=== PATIENT | male | born 1930 | race Caucasian/White ===

== ENCOUNTER 2018-07-04 15:18 | Inpatient (IN) | payer BC, MEDICARE ==
[~2018-07-04] VITALS: Ht 185.4 cm; Wt 79.0 kg
[~2018-07-04 15:18] MED LIST: ESOM40CA PO; FINA5TAB11 PO; LACT10SO PO; TERA5CAP4 PO
[2018-07-04] MEDS ORDERED: ASPIRIN 81MG TABLET PO ONE (16:00)
[2018-07-04 16:51] LABS: CHLORIDE 80 mEq/L (98-107)
[2018-07-04 16:53] LABS: HEMATOCRIT. 33.4 % (42.0-52.0); HEMOGLOBIN. 11.5 g/dL (14.0-18.0); MEAN CORPUSCULAR HEMOGLOBIN 30.2 pg (28.0-32.0); MEAN CORPUSCULAR VOLUME 87.8 fL (80.0-94.0); MEAN PLATELET VOLUME 7.3 fl (7.4-10.4); PLATELET 198 x1000/uL (130-400); RED CELL DISTRIBUTION WIDTH 13.9 % (11.6-14.6)
[2018-07-04] MEDS ORDERED: SODIUM CHLORIDE 0.9% 1,000 ML IV ONE (17:15)
[2018-07-04] MEDS ORDERED: SODIUM CHLORIDE 0.9% 500 ML IV ONE (17:15)
[2018-07-04 17:25] LABS: PLATELET ESTIMATE NORMAL
[2018-07-05] VITALS (12 sets, daily range): BP systolic 127–155; BP diastolic 61–98
[2018-07-05] MEDS ORDERED: DOCUSATE SODIUM 100MG CAPSULE PO PRN (01:00)
[2018-07-05] MEDS ORDERED: IPRATROPIUM/ALBUTEROL 0.5-3(2.5)MG/3ML NEB INH PRN (01:00)
[2018-07-05] MEDS ORDERED: NON FORMULARY PATIENT HOME MED PO SCH (01:00)
[2018-07-05] MEDS ORDERED: CLONIDINE 0.1MG TABLET PO PRN (01:00)
[2018-07-05] MEDS ORDERED: HYDROCODONE/APAP 7.5/325MG 1 TAB TABLET PO PRN (01:00)
[2018-07-05] MEDS ORDERED: MAGNESIUM/ALUMINUM HYDROXIDE/SIMETHICONE 30ML UDC PO PRN (01:00)
[2018-07-05] MEDS ORDERED: HYDROCODONE/ACETAMINOPHEN 5/325MG TABLET PO PRN (01:00)
[2018-07-05] MEDS ORDERED: ONDANSETRON HCL 4MG/2ML INJ IV PRN (01:00)
[2018-07-05] MEDS ORDERED: GUAIFENESIN 200MG/10ML SUGAR FREE UDC PO PRN (01:00)
[2018-07-05] MEDS ORDERED: ACETAMINOPHEN 325MG TABLET PO PRN (01:00)
[2018-07-05] MEDS ORDERED: DIPHENHYDRAMINE 50MG/ML VIAL IV PRN (01:00)
[2018-07-05] MEDS ORDERED: ATOR10TA69 MT (01:05)
[2018-07-05] MEDS ORDERED: FURO40TA5 PO (01:05)
[2018-07-05] MEDS ORDERED: CLOP75TA33 MT (01:05)
[2018-07-05] MEDS ORDERED: AMLO5TAB88 MT (01:05)
[2018-07-05] MEDS ORDERED: CEFTRIAXONE 1 G PREMIX 50 ML IV SCH (02:00)
[2018-07-05] MEDS ORDERED: AZITHROMYCIN 500 MG in DEXT 5% WATER 250 ML IV SCH (03:00)
[2018-07-05 05:57] LABS: BASOPHILS % 0.2 % (0.0-2.0); EOSINOPHILS % 0.2 % (0.0-5.0); HEMATOCRIT. 31.3 % (42.0-52.0); HEMOGLOBIN. 10.9 g/dL (14.0-18.0); LYMPHOCYTES % 7.4 % (20.0-50.0); MEAN CORPUSCULAR HEMOGLOBIN 30.5 pg (28.0-32.0); MEAN PLATELET VOLUME 7.5 fl (7.4-10.4); MONOCYTES % 10.6 % (2.0-8.0); NEUTROPHILS % 81.6 % (40.0-76.0); PLATELET 168 x1000/uL (130-400); RED BLOOD CELL COUNT 3.56 mill/uL (4.7-6.1); RED CELL DISTRIBUTION WIDTH 14.3 % (11.6-14.6)
[2018-07-05 06:16] LABS: CHLORIDE 81 mEq/L (98-107)
[2018-07-05 06:30] LABS: LDL CHOLESTEROL 16 mg/dL (5-100); PHOSPHORUS 3.2 mg/dL (2.5-4.9); T4 FREE 1.51 ng/dL (0.76-1.46)
[2018-07-05 06:31] LABS: HDL CHOLESTEROL 72 mg/dL (40-59)
[2018-07-05] MEDS ORDERED: PANTOPRAZOLE 40MG DR TABLET PO SCH (07:30)
[2018-07-05] MEDS: AMLODIPINE 5MG TABLET PO SCH (08:38)
[2018-07-05] MEDS: FINASTERIDE 5MG TABLET PO SCH (08:38)
[2018-07-05] MEDS: CLOPIDOGREL 75MG TABLET PO SCH (08:39)
[2018-07-05] MEDS ORDERED: FUROSEMIDE 40MG TABLET PO SCH (09:00)
[2018-07-05] MEDS ORDERED: FUROSEMIDE 40MG/4ML VIAL IVP SCH (09:00)
[2018-07-05] MEDS: FUROSEMIDE 40MG/4ML VIAL IVP SCH (13:14)
[2018-07-05] MEDS: SODIUM CHLORIDE 0.9% 1,000 ML IV SCH (13:14)
[2018-07-05 16:29] LABS: CLARITY URINE CLEAR (CLEAR); COLOR URINE YELLOW (YELLOW); KETONES URINE NEGATIVE (NEGATIVE); LEUKOCYTE ESTERASE URINE NEGATIVE (NEGATIVE); NITRITE URINE NEGATIVE (NEGATIVE); OCCULT BLOOD URINE NEGATIVE (NEGATIVE); PROTEIN URINE 2+ (NEGATIVE); SPECIFIC GRAVITY URINE 1.009 (1.005-1.030); UROBILINOGEN URINE 0.2 E.U./dL (0.2-1.0)
[2018-07-05] MEDS: CARVEDILOL 3.125 MG TABLET PO SCH (21:00)
[2018-07-05] MEDS: ATORVASTATIN CALCIUM 10MG TABLET PO SCH (21:00)
[2018-07-05] MEDS: TERAZOSIN HCL 5MG CAPSULE PO SCH (21:00)
[2018-07-06] VITALS (19 sets, daily range): BP systolic 111–147; BP diastolic 48–79
[2018-07-06 06:34] LABS: BASOPHILS % 0.4 % (0.0-2.0); EOSINOPHILS % 2.2 % (0.0-5.0); HEMATOCRIT. 32.6 % (42.0-52.0); HEMOGLOBIN. 11.2 g/dL (14.0-18.0); LYMPHOCYTES % 9.8 % (20.0-50.0); MEAN CORPUSCULAR HEMOGLOBIN 30.3 pg (28.0-32.0); MEAN CORPUSCULAR VOLUME 88.2 fL (80.0-94.0); MEAN PLATELET VOLUME 7.7 fl (7.4-10.4); MONOCYTES % 10.5 % (2.0-8.0); NEUTROPHILS % 77.1 % (40.0-76.0); PLATELET 176 x1000/uL (130-400); RED BLOOD CELL COUNT 3.69 mill/uL (4.7-6.1)
[2018-07-06 08:04] LABS: CHLORIDE 81 mEq/L (98-107)
[2018-07-06] MEDS: FUROSEMIDE 40MG/4ML VIAL IVP SCH (10:02)
[2018-07-06] MEDS: CLOPIDOGREL 75MG TABLET PO SCH (10:03)
[2018-07-06] MEDS: AMLODIPINE 5MG TABLET PO SCH (10:04)
[2018-07-06] MEDS: CARVEDILOL 3.125 MG TABLET PO SCH ×2 (10:12→20:18)
[2018-07-06] MEDS: FINASTERIDE 5MG TABLET PO SCH (10:12)
[2018-07-06] MEDS: SODIUM CHLORIDE 0.9% 1,000 ML IV SCH (10:12)
[2018-07-06] MEDS ORDERED: MAGNESIUM 2 G PREMIX 50 ML IV NR (12:00)
[2018-07-06] MEDS: LOSARTAN POTASSIUM 25 MG TABLET PO SCH (12:18)
[2018-07-06] MEDS: ENOXAPARIN 40MG/0.4ML SYR SUBCUT SCH (12:19)
[2018-07-06] MEDS: ATORVASTATIN CALCIUM 10MG TABLET PO SCH (20:12)
[2018-07-06] MEDS: TERAZOSIN HCL 5MG CAPSULE PO SCH (20:19)
[2018-07-07] VITALS (13 sets, daily range): BP systolic 113–138; BP diastolic 41–69
[2018-07-07] MEDS: SODIUM CHLORIDE 0.9% 1,000 ML IV SCH ×2 (04:36→23:38)
[2018-07-07 06:25] LABS: BASOPHILS % 0.5 % (0.0-2.0); HEMATOCRIT. 31.5 % (42.0-52.0); HEMOGLOBIN. 10.9 g/dL (14.0-18.0); LYMPHOCYTES % 8.8 % (20.0-50.0); MEAN CORPUSCULAR HEMOGLOBIN 30.3 pg (28.0-32.0); MEAN CORPUSCULAR VOLUME 87.8 fL (80.0-94.0); MEAN PLATELET VOLUME 7.5 fl (7.4-10.4); MONOCYTES % 9.7 % (2.0-8.0); PLATELET 175 x1000/uL (130-400); RED BLOOD CELL COUNT 3.58 mill/uL (4.7-6.1); RED CELL DISTRIBUTION WIDTH 13.8 % (11.6-14.6)
[2018-07-07 07:10] LABS: CHLORIDE 82 mEq/L (98-107)
[2018-07-07] MEDS: FINASTERIDE 5MG TABLET PO SCH (08:53)
[2018-07-07] MEDS: CLOPIDOGREL 75MG TABLET PO SCH (08:53)
[2018-07-07] MEDS: AMLODIPINE 5MG TABLET PO SCH (08:53)
[2018-07-07] MEDS: FUROSEMIDE 40MG/4ML VIAL IVP SCH (08:54)
[2018-07-07] MEDS: LOSARTAN POTASSIUM 25 MG TABLET PO SCH (08:54)
[2018-07-07] MEDS: CARVEDILOL 3.125 MG TABLET PO SCH ×2 (08:54→21:03)
[2018-07-07] MEDS ORDERED: POTASSIUM CHLORIDE 20MEQ TABLET SR PO SCH (09:30)
[2018-07-07] MEDS: ENOXAPARIN 40MG/0.4ML SYR SUBCUT SCH (11:15)
[2018-07-07] MEDS: TERAZOSIN HCL 5MG CAPSULE PO SCH (21:02)
[2018-07-07] MEDS: ATORVASTATIN CALCIUM 10MG TABLET PO SCH (21:03)
[2018-07-08] VITALS (11 sets, daily range): BP systolic 111–147; BP diastolic 56–75
[2018-07-08 06:29] LABS: BASOPHILS % 0.5 % (0.0-2.0); EOSINOPHILS % 3.4 % (0.0-5.0); HEMATOCRIT. 33.8 % (42.0-52.0); HEMOGLOBIN. 11.5 g/dL (14.0-18.0); LYMPHOCYTES % 10.7 % (20.0-50.0); MEAN CORPUSCULAR HEMOGLOBIN 29.9 pg (28.0-32.0); MEAN CORPUSCULAR VOLUME 87.7 fL (80.0-94.0); MEAN PLATELET VOLUME 7.4 fl (7.4-10.4); MONOCYTES % 10.3 % (2.0-8.0); NEUTROPHILS % 75.1 % (40.0-76.0); PLATELET 193 x1000/uL (130-400); RED BLOOD CELL COUNT 3.85 mill/uL (4.7-6.1)
[2018-07-08] MEDS: FUROSEMIDE 40MG/4ML VIAL IVP SCH (08:19)
[2018-07-08] MEDS: LOSARTAN POTASSIUM 25 MG TABLET PO SCH (08:19)
[2018-07-08] MEDS: FINASTERIDE 5MG TABLET PO SCH (08:19)
[2018-07-08] MEDS: AMLODIPINE 5MG TABLET PO SCH (08:20)
[2018-07-08] MEDS: CARVEDILOL 3.125 MG TABLET PO SCH ×2 (08:20→21:02)
[2018-07-08] MEDS: CLOPIDOGREL 75MG TABLET PO SCH (08:21)
[2018-07-08] MEDS ORDERED: NA PHOS,M-B/NA PHOS,DI-BA ENEMA 118ML PR SCH (09:30)
[2018-07-08] MEDS: ENOXAPARIN 40MG/0.4ML SYR SUBCUT SCH (11:08)
[2018-07-08] MEDS: SODIUM CHLORIDE 0.9% 1,000 ML IV SCH (21:01)
[2018-07-08] MEDS: LACTULOSE 20G/30ML UDC PO SCH (21:01)
[2018-07-08] MEDS: ATORVASTATIN CALCIUM 10MG TABLET PO SCH (21:02)
[2018-07-08] MEDS: TERAZOSIN HCL 5MG CAPSULE PO SCH (21:02)
[2018-07-09] VITALS (12 sets, daily range): BP systolic 110–142; BP diastolic 53–74
[2018-07-09 05:49] LABS: CHLORIDE 88 mEq/L (98-107)
[2018-07-09 05:58] LABS: BASOPHILS % 0.7 % (0.0-2.0); EOSINOPHILS % 3.9 % (0.0-5.0); HEMATOCRIT. 33.2 % (42.0-52.0); HEMOGLOBIN. 11.1 g/dL (14.0-18.0); LYMPHOCYTES % 10.5 % (20.0-50.0); MEAN CORPUSCULAR HEMOGLOBIN 29.8 pg (28.0-32.0); MEAN CORPUSCULAR VOLUME 89.1 fL (80.0-94.0); MEAN PLATELET VOLUME 7.4 fl (7.4-10.4); NEUTROPHILS % 73.9 % (40.0-76.0); PLATELET 187 x1000/uL (130-400); RED BLOOD CELL COUNT 3.72 mill/uL (4.7-6.1); RED CELL DISTRIBUTION WIDTH 14.1 % (11.6-14.6)
[2018-07-09] MEDS: FUROSEMIDE 40MG/4ML VIAL IVP SCH (09:53)
[2018-07-09] MEDS: LOSARTAN POTASSIUM 25 MG TABLET PO SCH (09:54)
[2018-07-09] MEDS: AMLODIPINE 5MG TABLET PO SCH (09:54)
[2018-07-09] MEDS: FINASTERIDE 5MG TABLET PO SCH (09:54)
[2018-07-09] MEDS: CLOPIDOGREL 75MG TABLET PO SCH (09:54)
[2018-07-09] MEDS: CARVEDILOL 3.125 MG TABLET PO SCH ×2 (09:54→21:39)
[2018-07-09] MEDS: ENOXAPARIN 40MG/0.4ML SYR SUBCUT SCH (10:03)
[2018-07-09] MEDS: SODIUM CHLORIDE 0.9% 1,000 ML IV SCH (16:02)
[2018-07-09] MEDS: LACTULOSE 20G/30ML UDC PO SCH (21:38)
[2018-07-09] MEDS: TERAZOSIN HCL 5MG CAPSULE PO SCH (21:39)
[2018-07-09] MEDS: ATORVASTATIN CALCIUM 10MG TABLET PO SCH (21:39)
[2018-07-10] VITALS (14 sets, daily range): BP systolic 110–139; BP diastolic 42–105
[2018-07-10 06:19] LABS: BASOPHILS % 0.7 % (0.0-2.0); EOSINOPHILS % 6.1 % (0.0-5.0); HEMATOCRIT. 33.1 % (42.0-52.0); HEMOGLOBIN. 11.3 g/dL (14.0-18.0); LYMPHOCYTES % 10.9 % (20.0-50.0); MEAN CORPUSCULAR HEMOGLOBIN 30.1 pg (28.0-32.0); MEAN CORPUSCULAR VOLUME 88.3 fL (80.0-94.0); MEAN PLATELET VOLUME 7.4 fl (7.4-10.4); MONOCYTES % 10.5 % (2.0-8.0); NEUTROPHILS % 71.8 % (40.0-76.0); PLATELET 179 x1000/uL (130-400); RED BLOOD CELL COUNT 3.75 mill/uL (4.7-6.1); RED CELL DISTRIBUTION WIDTH 14.3 % (11.6-14.6)
[2018-07-10] MEDS: CLOPIDOGREL 75MG TABLET PO SCH (09:07)
[2018-07-10] MEDS: CARVEDILOL 3.125 MG TABLET PO SCH ×2 (09:07→22:58)
[2018-07-10] MEDS: FUROSEMIDE 40MG/4ML VIAL IVP SCH (09:07)
[2018-07-10] MEDS: FINASTERIDE 5MG TABLET PO SCH (09:07)
[2018-07-10] MEDS: AMLODIPINE 5MG TABLET PO SCH (09:08)
[2018-07-10] MEDS: LOSARTAN POTASSIUM 25 MG TABLET PO SCH (09:08)
[2018-07-10] MEDS: ENOXAPARIN 40MG/0.4ML SYR SUBCUT SCH (13:57)
[2018-07-10] MEDS: ATORVASTATIN CALCIUM 10MG TABLET PO SCH (20:46)
[2018-07-10] MEDS: LACTULOSE 20G/30ML UDC PO SCH (20:46)
[2018-07-10] MEDS: TERAZOSIN HCL 5MG CAPSULE PO SCH (20:46)
[2018-07-11] VITALS (12 sets, daily range): BP systolic 101–134; BP diastolic 45–69
[2018-07-11] MEDS: CLOPIDOGREL 75MG TABLET PO SCH (08:55)
[2018-07-11] MEDS: AMLODIPINE 5MG TABLET PO SCH (08:55)
[2018-07-11] MEDS: LOSARTAN POTASSIUM 25 MG TABLET PO SCH (08:55)
[2018-07-11] MEDS: FUROSEMIDE 40MG/4ML VIAL IVP SCH (08:55)
[2018-07-11] MEDS: FINASTERIDE 5MG TABLET PO SCH (08:55)
[2018-07-11] MEDS: CARVEDILOL 3.125 MG TABLET PO SCH ×2 (08:56→20:32)
[2018-07-11 09:47] LABS: BASOPHILS % 0.8 % (0.0-2.0); EOSINOPHILS % 5.3 % (0.0-5.0); LYMPHOCYTES % 12.5 % (20.0-50.0); MEAN CORPUSCULAR HEMOGLOBIN 29.6 pg (28.0-32.0); MONOCYTES % 8.2 % (2.0-8.0); NEUTROPHILS % 73.2 % (40.0-76.0); PLATELET 187 x1000/uL (130-400); RED BLOOD CELL COUNT 4.05 mill/uL (4.7-6.1); RED CELL DISTRIBUTION WIDTH 14.1 % (11.6-14.6)
[2018-07-11] MEDS: ENOXAPARIN 40MG/0.4ML SYR SUBCUT SCH (10:49)
[2018-07-11] MEDS ORDERED: POTASSIUM CHLORIDE 20MEQ TABLET SR PO NR (11:30)
[2018-07-11] MEDS: TERAZOSIN HCL 5MG CAPSULE PO SCH (20:32)
[2018-07-11] MEDS: LACTULOSE 20G/30ML UDC PO SCH (20:32)
[2018-07-11] MEDS: ATORVASTATIN CALCIUM 10MG TABLET PO SCH (20:32)
[2018-07-12] VITALS (13 sets, daily range): BP systolic 95–133; BP diastolic 45–66
[2018-07-12 06:32] LABS: BASOPHILS % 1.1 % (0.0-2.0); EOSINOPHILS % 6.4 % (0.0-5.0); HEMATOCRIT. 33.4 % (42.0-52.0); HEMOGLOBIN. 11.4 g/dL (14.0-18.0); LYMPHOCYTES % 11.5 % (20.0-50.0); MEAN CORPUSCULAR HEMOGLOBIN 30.2 pg (28.0-32.0); MEAN CORPUSCULAR VOLUME 88.3 fL (80.0-94.0); MEAN PLATELET VOLUME 7.3 fl (7.4-10.4); MONOCYTES % 10.6 % (2.0-8.0); NEUTROPHILS % 70.4 % (40.0-76.0); PLATELET 196 x1000/uL (130-400); RED BLOOD CELL COUNT 3.79 mill/uL (4.7-6.1); RED CELL DISTRIBUTION WIDTH 14.5 % (11.6-14.6)
[2018-07-12] MEDS: FUROSEMIDE 40MG/4ML VIAL IVP SCH (08:20)
[2018-07-12] MEDS: AMLODIPINE 5MG TABLET PO SCH (08:21)
[2018-07-12] MEDS: FINASTERIDE 5MG TABLET PO SCH (08:21)
[2018-07-12] MEDS: LOSARTAN POTASSIUM 25 MG TABLET PO SCH (08:21)
[2018-07-12] MEDS: CARVEDILOL 3.125 MG TABLET PO SCH ×2 (08:21→21:18)
[2018-07-12] MEDS: CLOPIDOGREL 75MG TABLET PO SCH (08:22)
[2018-07-12] MEDS: ENOXAPARIN 40MG/0.4ML SYR SUBCUT SCH (09:23)
[2018-07-12] MEDS: LACTULOSE 20G/30ML UDC PO SCH (21:17)
[2018-07-12] MEDS: ATORVASTATIN CALCIUM 10MG TABLET PO SCH (21:17)
[2018-07-12] MEDS: TERAZOSIN HCL 5MG CAPSULE PO SCH (21:18)
[2018-07-13] VITALS (10 sets, daily range): BP systolic 101–139; BP diastolic 46–69
[2018-07-13] MEDS: CARVEDILOL 3.125 MG TABLET PO SCH ×2 (08:08→21:00)
[2018-07-13] MEDS: LOSARTAN POTASSIUM 25 MG TABLET PO SCH (08:09)
[2018-07-13] MEDS: AMLODIPINE 5MG TABLET PO SCH (08:09)
[2018-07-13] MEDS: FUROSEMIDE 40MG/4ML VIAL IVP SCH (08:52)
[2018-07-13] MEDS: CLOPIDOGREL 75MG TABLET PO SCH (08:52)
[2018-07-13] MEDS: FINASTERIDE 5MG TABLET PO SCH (08:53)
[2018-07-13] MEDS: ENOXAPARIN 40MG/0.4ML SYR SUBCUT SCH (11:04)
[2018-07-13 13:09] LABS: HEMATOCRIT 36.4 % (42.0-52.0); HEMOGLOBIN 12.2 g/dL (14.0-18.0); MEAN CORPUSCULAR VOLUME 89.7 fL (80.0-94.0); PLATELET 196 x1000/uL (130-400); RED BLOOD CELL COUNT 4.06 mill/uL (4.7-6.1); RED CELL DISTRIBUTION WIDTH 14.1 % (11.6-14.6)
[2018-07-13 13:52] LABS: CHLORIDE 95 mEq/L (98-107)
[2018-07-13] MEDS: ATORVASTATIN CALCIUM 10MG TABLET PO SCH (21:00)
[2018-07-13] MEDS: TERAZOSIN HCL 5MG CAPSULE PO SCH (21:00)
[2018-07-13] MEDS: LACTULOSE 20G/30ML UDC PO SCH (21:00)
[2018-07-14] VITALS (8 sets, daily range): BP systolic 98–130; BP diastolic 46–66
[2018-07-14 07:55] LABS: EOSINOPHILS % 4.7 % (0.0-5.0); HEMATOCRIT. 34.1 % (42.0-52.0); HEMOGLOBIN. 11.4 g/dL (14.0-18.0); LYMPHOCYTES % 11.9 % (20.0-50.0); MEAN CORPUSCULAR HEMOGLOBIN 29.8 pg (28.0-32.0); MEAN CORPUSCULAR VOLUME 89.1 fL (80.0-94.0); MEAN PLATELET VOLUME 7.3 fl (7.4-10.4); MONOCYTES % 9.8 % (2.0-8.0); NEUTROPHILS % 72.6 % (40.0-76.0); PLATELET 193 x1000/uL (130-400); RED BLOOD CELL COUNT 3.82 mill/uL (4.7-6.1); RED CELL DISTRIBUTION WIDTH 14.4 % (11.6-14.6)
[2018-07-14] MEDS: LOSARTAN POTASSIUM 25 MG TABLET PO SCH (08:59)
[2018-07-14] MEDS: CARVEDILOL 3.125 MG TABLET PO SCH ×2 (08:59→20:27)
[2018-07-14] MEDS: CLOPIDOGREL 75MG TABLET PO SCH (08:59)
[2018-07-14] MEDS: FUROSEMIDE 40MG TABLET PO SCH (08:59)
[2018-07-14] MEDS: FINASTERIDE 5MG TABLET PO SCH (08:59)
[2018-07-14] MEDS: AMLODIPINE 5MG TABLET PO SCH (09:00)
[2018-07-14] MEDS: ENOXAPARIN 40MG/0.4ML SYR SUBCUT SCH (10:18)
[2018-07-14] MEDS: LACTULOSE 20G/30ML UDC PO SCH (20:26)
[2018-07-14] MEDS: ATORVASTATIN CALCIUM 10MG TABLET PO SCH (20:27)
[2018-07-14] MEDS: TERAZOSIN HCL 5MG CAPSULE PO SCH (20:27)
[2018-07-15] VITALS: BP 119/51
[2018-07-15 04:00] VITALS: BP 120/49
[2018-07-15 07:54] LABS: EOSINOPHILS % 4.7 % (0.0-5.0); HEMATOCRIT. 34.6 % (42.0-52.0); HEMOGLOBIN. 11.4 g/dL (14.0-18.0); LYMPHOCYTES % 13.2 % (20.0-50.0); MEAN CORPUSCULAR HEMOGLOBIN 29.4 pg (28.0-32.0); MEAN CORPUSCULAR VOLUME 89.1 fL (80.0-94.0); MONOCYTES % 9.4 % (2.0-8.0); NEUTROPHILS % 71.7 % (40.0-76.0); PLATELET 183 x1000/uL (130-400); RED BLOOD CELL COUNT 3.89 mill/uL (4.7-6.1); RED CELL DISTRIBUTION WIDTH 14.1 % (11.6-14.6)
[2018-07-15 08:00] VITALS: BP 121/50
[2018-07-15] MEDS: CLOPIDOGREL 75MG TABLET PO SCH (08:14)
[2018-07-15] MEDS: FUROSEMIDE 40MG TABLET PO SCH (08:15)
[2018-07-15] MEDS: AMLODIPINE 2.5MG TABLET PO SCH (08:15)
[2018-07-15] MEDS: CARVEDILOL 3.125 MG TABLET PO SCH ×2 (08:15→21:17)
[2018-07-15] MEDS: LOSARTAN POTASSIUM 25 MG TABLET PO SCH (08:15)
[2018-07-15] MEDS: FINASTERIDE 5MG TABLET PO SCH (08:18)
[2018-07-15] MEDS: ENOXAPARIN 40MG/0.4ML SYR SUBCUT SCH (10:25)
[2018-07-15 12:00] VITALS: BP 123/64
[2018-07-15 16:00] VITALS: BP 115/56
[2018-07-15 20:00] VITALS: BP 110/53
[2018-07-15] MEDS: LACTULOSE 20G/30ML UDC PO SCH (21:14)
[2018-07-15] MEDS: ATORVASTATIN CALCIUM 10MG TABLET PO SCH (21:15)
[2018-07-15] MEDS: TERAZOSIN HCL 5MG CAPSULE PO SCH (21:18)
[2018-07-16] VITALS (8 sets, daily range): BP systolic 112–132; BP diastolic 48–77
[2018-07-16 06:02] LABS: EOSINOPHILS % 4.1 % (0.0-5.0); HEMOGLOBIN. 11.8 g/dL (14.0-18.0); LYMPHOCYTES % 12.5 % (20.0-50.0); MEAN CORPUSCULAR VOLUME 88.6 fL (80.0-94.0); MEAN PLATELET VOLUME 7.5 fl (7.4-10.4); MONOCYTES % 9.1 % (2.0-8.0); NEUTROPHILS % 73.3 % (40.0-76.0); PLATELET 186 x1000/uL (130-400); RED BLOOD CELL COUNT 3.95 mill/uL (4.7-6.1); RED CELL DISTRIBUTION WIDTH 14.1 % (11.6-14.6)
[2018-07-16] MEDS: LOSARTAN POTASSIUM 25 MG TABLET PO SCH (09:09)
[2018-07-16] MEDS: FUROSEMIDE 40MG TABLET PO SCH (09:09)
[2018-07-16] MEDS: ENOXAPARIN 40MG/0.4ML SYR SUBCUT SCH (09:09)
[2018-07-16] MEDS: AMLODIPINE 2.5MG TABLET PO SCH (09:09)
[2018-07-16] MEDS: CLOPIDOGREL 75MG TABLET PO SCH (09:09)
[2018-07-16] MEDS: FINASTERIDE 5MG TABLET PO SCH (09:10)
[2018-07-16] MEDS: CARVEDILOL 3.125 MG TABLET PO SCH ×2 (09:10→21:50)
[2018-07-16] MEDS: LACTULOSE 20G/30ML UDC PO SCH (21:49)
[2018-07-16] MEDS: ATORVASTATIN CALCIUM 10MG TABLET PO SCH (21:50)
[2018-07-16] MEDS: TERAZOSIN HCL 5MG CAPSULE PO SCH (21:50)
[2018-07-17] VITALS (10 sets, daily range): BP systolic 100–134; BP diastolic 52–72
[2018-07-17] MEDS: CLOPIDOGREL 75MG TABLET PO SCH (09:01)
[2018-07-17] MEDS: LOSARTAN POTASSIUM 25 MG TABLET PO SCH (09:01)
[2018-07-17] MEDS: CARVEDILOL 3.125 MG TABLET PO SCH ×2 (09:01→21:33)
[2018-07-17] MEDS: FINASTERIDE 5MG TABLET PO SCH (09:01)
[2018-07-17] MEDS: AMLODIPINE 2.5MG TABLET PO SCH (09:02)
[2018-07-17 09:03] LABS: EOSINOPHILS % 3.9 % (0.0-5.0); HEMOGLOBIN. 12.7 g/dL (14.0-18.0); LYMPHOCYTES % 13.6 % (20.0-50.0); MEAN CORPUSCULAR HEMOGLOBIN 29.7 pg (28.0-32.0); MEAN CORPUSCULAR VOLUME 89.3 fL (80.0-94.0); MEAN PLATELET VOLUME 7.6 fl (7.4-10.4); MONOCYTES % 7.8 % (2.0-8.0); NEUTROPHILS % 73.7 % (40.0-76.0); PLATELET 195 x1000/uL (130-400); RED BLOOD CELL COUNT 4.26 mill/uL (4.7-6.1); RED CELL DISTRIBUTION WIDTH 14.4 % (11.6-14.6)
[2018-07-17] MEDS: ENOXAPARIN 40MG/0.4ML SYR SUBCUT SCH (12:07)
[2018-07-17] MEDS ORDERED: LACTULOSE 20G/30ML UDC PO NR (21:00)
[2018-07-17] MEDS: LACTULOSE 20G/30ML UDC PO SCH (21:32)
[2018-07-17] MEDS: ATORVASTATIN CALCIUM 10MG TABLET PO SCH (21:33)
[2018-07-17] MEDS: TERAZOSIN HCL 5MG CAPSULE PO SCH (21:34)
[2018-07-18] VITALS: BP 131/64
[2018-07-18 04:00] VITALS: BP 127/61
[2018-07-18 08:00] VITALS: BP 118/53
[2018-07-18] MEDS: ENOXAPARIN 40MG/0.4ML SYR SUBCUT SCH (10:56)
[2018-07-18] MEDS: CLOPIDOGREL 75MG TABLET PO SCH (10:57)
[2018-07-18] MEDS: DOCUSATE SODIUM 100MG CAPSULE PO SCH ×2 (10:57→17:06)
[2018-07-18] MEDS: FINASTERIDE 5MG TABLET PO SCH (10:57)
[2018-07-18] MEDS: LOSARTAN POTASSIUM 25 MG TABLET PO SCH (10:58)
[2018-07-18] MEDS: CARVEDILOL 3.125 MG TABLET PO SCH (10:58)
[2018-07-18] MEDS: AMLODIPINE 2.5MG TABLET PO SCH (10:58)
[2018-07-18 12:48] LABS: BASOPHILS % 0.5 % (0.0-2.0); EOSINOPHILS % 1.5 % (0.0-5.0); HEMATOCRIT. 37.8 % (42.0-52.0); HEMOGLOBIN. 12.4 g/dL (14.0-18.0); LYMPHOCYTES % 9.9 % (20.0-50.0); MEAN CORPUSCULAR HEMOGLOBIN 29.5 pg (28.0-32.0); MEAN CORPUSCULAR VOLUME 89.8 fL (80.0-94.0); MEAN PLATELET VOLUME 7.3 fl (7.4-10.4); MONOCYTES % 8.2 % (2.0-8.0); NEUTROPHILS % 79.9 % (40.0-76.0); PLATELET 185 x1000/uL (130-400); RED BLOOD CELL COUNT 4.21 mill/uL (4.7-6.1); RED CELL DISTRIBUTION WIDTH 14.4 % (11.6-14.6)
[2018-07-18 12:50] LABS: CHLORIDE 98 mEq/L (98-107)
[2018-07-18 13:01] VITALS: BP_SYST 110; BP_SYST 111; BP_DIAS 51; BP_DIAS 59
[2018-07-18 16:31] VITALS: BP 130/70
[2018-07-18 20:00] VITALS: BP 127/52
[2018-07-18] MEDS: ATORVASTATIN CALCIUM 10MG TABLET PO SCH (20:43)
[2018-07-18] MEDS: LACTULOSE 20G/30ML UDC PO SCH (20:43)
[2018-07-18] MEDS: TERAZOSIN HCL 5MG CAPSULE PO SCH (20:44)
[2018-07-18] MEDS: SENNOSIDES 8.6MG TABLET PO PRN (20:44)
[2018-07-18] MEDS: CARVEDILOL 6.25 MG TABLET PO SCH (20:44)
[2018-07-19] VITALS: BP 114/69
[2018-07-19 04:00] VITALS: BP 127/45
[2018-07-19 08:00] VITALS: BP 135/50
[2018-07-19] MEDS ORDERED: NA PHOS,M-B/NA PHOS,DI-BA ENEMA 118ML PR PRN (09:00)
[2018-07-19] MEDS: CLOPIDOGREL 75MG TABLET PO SCH (09:32)
[2018-07-19] MEDS: DOCUSATE SODIUM 100MG CAPSULE PO SCH ×2 (09:32→16:41)
[2018-07-19] MEDS: LOSARTAN POTASSIUM 25 MG TABLET PO SCH (09:32)
[2018-07-19] MEDS: CARVEDILOL 6.25 MG TABLET PO SCH (09:32)
[2018-07-19] MEDS: AMLODIPINE 2.5MG TABLET PO SCH (09:32)
[2018-07-19] MEDS: FINASTERIDE 5MG TABLET PO SCH (09:32)
[2018-07-19] MEDS: ENOXAPARIN 40MG/0.4ML SYR SUBCUT SCH (10:31)
[2018-07-19 12:00] VITALS: BP 122/45
[2018-07-19 15:56] VITALS: BP 124/68
[2018-07-19 20:00] VITALS: BP 120/64
[2018-07-19] MEDS: ATORVASTATIN CALCIUM 10MG TABLET PO SCH (20:44)
[2018-07-19] MEDS: TERAZOSIN HCL 5MG CAPSULE PO SCH (20:44)
[2018-07-19] MEDS: CARVEDILOL 12.5MG TABLET PO SCH (20:45)
[2018-07-19] MEDS: LACTULOSE 20G/30ML UDC PO SCH (20:45)
[2018-07-20] VITALS: BP_SYST 119; BP_SYST 127; BP_DIAS 38; BP_DIAS 50
[2018-07-20 04:00] VITALS: BP 123/76
[2018-07-20 07:24] LABS: BASOPHILS % 0.8 % (0.0-2.0); EOSINOPHILS % 2.4 % (0.0-5.0); HEMATOCRIT. 36.8 % (42.0-52.0); HEMOGLOBIN. 12.2 g/dL (14.0-18.0); MEAN CORPUSCULAR HEMOGLOBIN 29.9 pg (28.0-32.0); MEAN CORPUSCULAR VOLUME 89.8 fL (80.0-94.0); MEAN PLATELET VOLUME 7.7 fl (7.4-10.4); MONOCYTES % 6.9 % (2.0-8.0); NEUTROPHILS % 80.9 % (40.0-76.0); PLATELET 206 x1000/uL (130-400); RED CELL DISTRIBUTION WIDTH 14.1 % (11.6-14.6)
[2018-07-20 08:00] VITALS: BP 129/43
[2018-07-20] MEDS: DOCUSATE SODIUM 100MG CAPSULE PO SCH ×2 (09:11→17:20)
[2018-07-20] MEDS: CLOPIDOGREL 75MG TABLET PO SCH (09:11)
[2018-07-20] MEDS: FINASTERIDE 5MG TABLET PO SCH (09:11)
[2018-07-20] MEDS: LOSARTAN POTASSIUM 25 MG TABLET PO SCH (09:12)
[2018-07-20] MEDS: AMLODIPINE 2.5MG TABLET PO SCH (09:12)
[2018-07-20] MEDS: CARVEDILOL 12.5MG TABLET PO SCH ×2 (09:12→21:00)
[2018-07-20] MEDS: ENOXAPARIN 40MG/0.4ML SYR SUBCUT SCH (10:16)
[2018-07-20 12:00] VITALS: BP 113/38
[2018-07-20 16:00] VITALS: BP 124/36
[2018-07-20 20:00] VITALS: BP 127/50
[2018-07-20] MEDS: TERAZOSIN HCL 5MG CAPSULE PO SCH (20:59)
[2018-07-20] MEDS: SENNOSIDES 8.6MG TABLET PO PRN (20:59)
[2018-07-20] MEDS: ATORVASTATIN CALCIUM 10MG TABLET PO SCH (20:59)
[2018-07-20] MEDS: LACTULOSE 20G/30ML UDC PO SCH (21:00)
[2018-07-21] VITALS: BP 126/52
[2018-07-21 04:00] VITALS: BP 130/60
[2018-07-21 08:21] VITALS: BP 125/56
[2018-07-21] MEDS: DOCUSATE SODIUM 100MG CAPSULE PO SCH (09:18)
[2018-07-21] MEDS: AMLODIPINE 2.5MG TABLET PO SCH (09:18)
[2018-07-21] MEDS: FINASTERIDE 5MG TABLET PO SCH (09:18)
[2018-07-21] MEDS: CLOPIDOGREL 75MG TABLET PO SCH (09:18)
[2018-07-21] MEDS: LOSARTAN POTASSIUM 25 MG TABLET PO SCH (09:18)
[2018-07-21] MEDS: CARVEDILOL 12.5MG TABLET PO SCH (09:19)
[2018-07-21 10:08] VITALS: BP 125/56
== END 2018-07-21 11:30 | disposition home health service (06) | DRG 291 ==
LOC: ER 17:43 → EDBEDREQTM 17:44 → EDBEDREQ 17:44 → 5EST 17:44 → EDBEDREQSVC 17:44 → ENRESERV 22:19 → 8WST 07-17 23:50
PROVIDERS: ADMIT Specialist; ATTEND Specialist
DX: I11.0 Hypertensive heart disease with heart failure (principal); J18.9 Pneumonia, unspecified organism; G92 Toxic encephalopathy; E87.1 Hypo-osmolality and hyponatremia; I48.92 Unspecified atrial flutter; N17.9 Acute kidney failure, unspecified; I50.23 Acute on chronic systolic (congestive) heart failure; I42.9 Cardiomyopathy, unspecified; I44.7 Left bundle-branch block, unspecified; E83.42 Hypomagnesemia; E78.5 Hyperlipidemia, unspecified; R53.81 Other malaise; D64.9 Anemia, unspecified; I48.0 Paroxysmal atrial fibrillation; E87.6 Hypokalemia; H91.90 Unspecified hearing loss, unspecified ear; I25.10 Atherosclerotic heart disease of native coronary artery without angina pectoris; N40.0 Benign prostatic hyperplasia without lower urinary tract symptoms; R13.10 Dysphagia, unspecified; R26.9 Unspecified abnormalities of gait and mobility; Z91.81 History of falling; Z79.899 Other long term (current) drug therapy
CPT/HCPCS: 36415; 71045; 80048; 80061; 82533; 82570; 83036; 83735; 83880; 83930; 83935; 84100; 84295; 84300; 84439; 84443; 84484; 84540; 85027; 92523; 92610; 93005; 93306; 93970; 96360; 97110; 97116; 97162; 97166; 97530; 97535; 99285; A6261; J0456; J0696; J1650; J1940; J3475; J7030; J7040; J7050; J7060; J7620

== ENCOUNTER 2018-09-08 12:09 | Inpatient (IN) | payer MEDICARE ==
[~2018-09-08] VITALS: Ht 175.3 cm; Wt 46.3 kg
[~2018-09-08 12:09] MED LIST changes: +AMLO5TAB88 MT; +ATOR10TA69 MT; +CLOP75TA33 MT; +FURO40TA5 PO
[2018-09-08 14:21] LABS: HEMATOCRIT. 36.9 % (42.0-52.0); HEMOGLOBIN. 12.1 g/dL (14.0-18.0); MEAN CORPUSCULAR HEMOGLOBIN 28.6 pg (28.0-32.0); MEAN CORPUSCULAR VOLUME 87.5 fL (80.0-94.0); MEAN PLATELET VOLUME 6.8 fl (7.4-10.4); PLATELET 210 x1000/uL (130-400); RED BLOOD CELL COUNT 4.22 mill/uL (4.7-6.1); RED CELL DISTRIBUTION WIDTH 15.1 % (11.6-14.6)
[2018-09-08 14:27] LABS: CHLORIDE 86 mEq/L (98-107)
[2018-09-08 14:55] LABS: PLATELET ESTIMATE NORMAL
[2018-09-08 17:26] LABS: CLARITY URINE CLEAR (CLEAR); COLOR URINE YELLOW (YELLOW); KETONES URINE NEGATIVE (NEGATIVE); LEUKOCYTE ESTERASE URINE NEGATIVE (NEGATIVE); NITRITE URINE NEGATIVE (NEGATIVE); OCCULT BLOOD URINE NEGATIVE (NEGATIVE); PROTEIN URINE NEGATIVE (NEGATIVE); SPECIFIC GRAVITY URINE 1.012 (1.005-1.030); UROBILINOGEN URINE 0.2 E.U./dL (0.2-1.0)
[2018-09-08 17:49] LABS: *AMPHETAMINES SCREEN URINE NEGATIVE (NEGATIVE); *BARBITURATES SCREEN URINE NEGATIVE (NEGATIVE); *BENZODIAZEPINES SCREEN URINE NEGATIVE (NEGATIVE); *COCAINE SCREEN URINE NEGATIVE (NEGATIVE); OPIATES URINE SCREEN NEGATIVE (NEGATIVE)
[2018-09-08 17:50] LABS: CANNABINOID URINE SCREEN NEGATIVE (NEGATIVE); PHENCYCLIDINE URINE SCREEN NEGATIVE (NEGATIVE)
[2018-09-08 17:56] LABS: METHADONE URINE SCREEN NEGATIVE (NEGATIVE)
[2018-09-08] MEDS ORDERED: POTASSIUM CHLORIDE INJ 30 MEQ in DEXT 5%/0.9% NACL 1,000 ML IV ONE (18:30)
[2018-09-08] MEDS ORDERED: POTASSIUM CHLORIDE 20MEQ TABLET SR PO ONE (18:45)
[2018-09-08] MEDS ORDERED: FUROSEMIDE 40MG/4ML VIAL IVP ONE (20:00)
[2018-09-08] MEDS ORDERED: GUAIFENESIN 200MG/10ML SUGAR FREE UDC PO PRN (21:00)
[2018-09-08] MEDS ORDERED: CLONIDINE 0.1MG TABLET PO PRN (21:00)
[2018-09-08] MEDS ORDERED: DIPHENHYDRAMINE 50MG/ML VIAL IV PRN (21:00)
[2018-09-08] MEDS ORDERED: MAGNESIUM/ALUMINUM HYDROXIDE/SIMETHICONE 30ML UDC PO PRN (21:00)
[2018-09-08] MEDS ORDERED: DOCUSATE SODIUM 100MG CAPSULE PO PRN (21:00)
[2018-09-08] MEDS ORDERED: ONDANSETRON HCL 4MG/2ML INJ IV PRN (21:00)
[2018-09-08] MEDS ORDERED: IPRATROPIUM/ALBUTEROL 0.5-3(2.5)MG/3ML NEB INH PRN (21:00)
[2018-09-08] MEDS ORDERED: ACETAMINOPHEN 325MG TABLET PO PRN (21:00)
[2018-09-08] MEDS ORDERED: IPRATROPIUM/ALBUTEROL 0.5-3(2.5)MG/3ML NEB HHN SCH (21:15)
[2018-09-08] MEDS ORDERED: CEFEPIME 2,000 MG in DEXT 5% WATER 100 ML IV NR (23:15)
[2018-09-09 01:21] LABS: PHOSPHORUS 3.4 mg/dL (2.5-4.9)
[2018-09-09 01:52] LABS: BG BASE EXCESS 16.2 mmol/L (-2.0-2.0); BG CARBOXYHEMOGLOBIN 1.3 % (0.5-1.5); BG DEOXYHEMOGLOBIN 5.1 % (0.0-5.0); BG FRACTION INSPIRED OXYGEN 40; BG HCO3 ACT 43.5 mmol/L (22.0-26.0); BG METHEMOGLOBIN 0.3 % (0.0-1.5); BG OXYGEN SATURATION 94.8 % (92.0-98.5); BG OXYHEMOGLOBIN 93.3 % (94.0-97.0); BG PH 7.437 (7.350-7.450); BG PO2 76.8 mmHg (75.0-100.0); BG SAMPLE SITE RIGHT BRACHIAL; BG TOTAL HEMOGLOBIN 12.8 g/dL (12.0-18.0); BG VENT MODE NASAL CANNULA
[2018-09-09] MEDS ORDERED: HYDROCODONE/ACETAMINOPHEN 10/325MG TABLET PO PRN (02:25)
[2018-09-09] MEDS ORDERED: HYDROCODONE/ACETAMINOPHEN 5/325MG TABLET PO PRN (02:25)
[2018-09-09] MEDS ORDERED: LORAZEPAM 0.5MG TABLET PO PRN (02:26)
[2018-09-09] MEDS ORDERED: POTASSIUM CHLORIDE INJ 60 MEQ in DEXT 5% WATER 500 ML IV SCH (03:00)
[2018-09-09 04:39] LABS: CHLORIDE 87 mEq/L (98-107)
[2018-09-09 04:41] LABS: HEMATOCRIT. 36.9 % (42.0-52.0); MEAN CORPUSCULAR HEMOGLOBIN 28.5 pg (28.0-32.0); MEAN CORPUSCULAR VOLUME 87.8 fL (80.0-94.0); MEAN PLATELET VOLUME 6.7 fl (7.4-10.4); PLATELET 208 x1000/uL (130-400); RED CELL DISTRIBUTION WIDTH 14.8 % (11.6-14.6)
[2018-09-09 04:44] LABS: PHOSPHORUS 3.3 mg/dL (2.5-4.9)
[2018-09-09 04:46] LABS: LDL CHOLESTEROL 29 mg/dL (5-100)
[2018-09-09 04:47] LABS: CREATINE KINASE 46 IU/L (39-308); HDL CHOLESTEROL 60 mg/dL (40-59)
[2018-09-09 04:50] LABS: T4 FREE 1.37 ng/dL (0.76-1.46)
[2018-09-09 05:20] LABS: PLATELET ESTIMATE NORMAL
[2018-09-09 08:08] LABS: HEMATOCRIT. 38.7 % (42.0-52.0); HEMOGLOBIN. 12.6 g/dL (14.0-18.0); MEAN CORPUSCULAR HEMOGLOBIN 28.4 pg (28.0-32.0); MEAN CORPUSCULAR VOLUME 87.5 fL (80.0-94.0); MEAN PLATELET VOLUME 6.8 fl (7.4-10.4); PLATELET 197 x1000/uL (130-400); RED BLOOD CELL COUNT 4.43 mill/uL (4.7-6.1); RED CELL DISTRIBUTION WIDTH 14.8 % (11.6-14.6)
[2018-09-09 08:54] LABS: PLATELET ESTIMATE NORMAL
[2018-09-09] MEDS ORDERED: CEFEPIME 2,000 MG in DEXT 5% WATER 100 ML IV SCH ×2 (09:00→21:00)
[2018-09-09 10:22] LABS: BG BASE EXCESS 17.4 mmol/L (-2.0-2.0); BG CARBOXYHEMOGLOBIN 1.1 % (0.5-1.5); BG DEOXYHEMOGLOBIN 4.5 % (0.0-5.0); BG FRACTION INSPIRED OXYGEN 40; BG HCO3 ACT 45.5 mmol/L (22.0-26.0); BG METHEMOGLOBIN 0.4 % (0.0-1.5); BG OXYGEN SATURATION 95.4 % (92.0-98.5); BG PCO2 72.1 mmHg (35.0-45.0); BG PH 7.418 (7.350-7.450); BG PO2 80.1 mmHg (75.0-100.0); BG SAMPLE SITE RIGHT BRACHIAL; BG TOTAL HEMOGLOBIN 12.8 g/dL (12.0-18.0); BG VENT MODE NASAL CANNULA
[2018-09-09] MEDS: FUROSEMIDE 40MG/4ML VIAL IV SCH (10:30)
[2018-09-09] MEDS: AMLODIPINE 10MG TABLET PO SCH (11:34)
[2018-09-09 17:24] LABS: PHOSPHORUS 2.8 mg/dL (2.5-4.9)
[2018-09-09] MEDS ORDERED: POTASSIUM CHLORIDE 20MEQ TABLET SR PO SCH (18:00)
[2018-09-09] MEDS ORDERED: IPRATROPIUM/ALBUTEROL 0.5-3(2.5)MG/3ML NEB HHN SCH (18:00)
[2018-09-09] MEDS: IPRATROPIUM/ALBUTEROL 0.5-3(2.5)MG/3ML NEB HHN SCH (21:09)
[2018-09-10] MEDS: IPRATROPIUM/ALBUTEROL 0.5-3(2.5)MG/3ML NEB HHN SCH ×5 (00:24→20:21)
[2018-09-10 04:52] LABS: BASOPHILS % 0.5 % (0.0-2.0); EOSINOPHILS % 1.3 % (0.0-5.0); HEMATOCRIT. 35.1 % (42.0-52.0); HEMOGLOBIN. 11.5 g/dL (14.0-18.0); LYMPHOCYTES % 7.4 % (20.0-50.0); MEAN CORPUSCULAR VOLUME 88.2 fL (80.0-94.0); MEAN PLATELET VOLUME 6.9 fl (7.4-10.4); MONOCYTES % 6.8 % (2.0-8.0); PLATELET 177 x1000/uL (130-400); RED BLOOD CELL COUNT 3.98 mill/uL (4.7-6.1); RED CELL DISTRIBUTION WIDTH 14.9 % (11.6-14.6)
[2018-09-10 07:50] LABS: BG BASE EXCESS 16.6 mmol/L (-2.0-2.0); BG CARBOXYHEMOGLOBIN 0.4 % (0.5-1.5); BG DEOXYHEMOGLOBIN 6.4 % (0.0-5.0); BG HCO3 ACT 45.2 mmol/L (22.0-26.0); BG METHEMOGLOBIN 0.1 % (0.0-1.5); BG OXYGEN SATURATION 93.6 % (92.0-98.5); BG OXYHEMOGLOBIN 93.1 % (94.0-97.0); BG PCO2 76.7 mmHg (35.0-45.0); BG PH 7.388 (7.350-7.450); BG SAMPLE SITE RIGHT BRACHIAL; BG TOTAL HEMOGLOBIN 12.4 g/dL (12.0-18.0); BG VENT MODE NASAL CANNULA
[2018-09-10] MEDS: FUROSEMIDE 40MG/4ML VIAL IV SCH (09:00)
[2018-09-10] MEDS: POTASSIUM CHLORIDE 20MEQ/PACKET PO SCH ×2 (09:00→17:04)
[2018-09-10] MEDS: AMLODIPINE 10MG TABLET PO SCH (09:00)
[2018-09-10 12:24] VITALS: BP 111/48
[2018-09-10 12:45] VITALS: BP 111/48
[2018-09-10 16:00] VITALS: BP 110/50
[2018-09-10] MEDS ORDERED: LACTULOSE 20G/30ML UDC PO SCH (18:30)
[2018-09-10 20:00] VITALS: BP 107/51
[2018-09-10] MEDS: LACTULOSE 20G/30ML UDC PO SCH (20:40)
[2018-09-10 22:30] VITALS: BP 107/51
[2018-09-10] MEDS: CEFEPIME 2,000 MG in DEXT 5% WATER 100 ML IV SCH (23:03)
[2018-09-10] MEDS: GUAIFENESIN 600MG ER TABLET PO SCH (23:10)
[2018-09-11 00:14] VITALS: BP_SYST 109; BP_SYST 87; BP_DIAS 48; BP_DIAS 56
[2018-09-11] MEDS: IPRATROPIUM/ALBUTEROL 0.5-3(2.5)MG/3ML NEB HHN SCH ×5 (01:00→21:08)
[2018-09-11 04:00] VITALS: BP 119/55
[2018-09-11 05:54] LABS: HEMATOCRIT. 32.5 % (42.0-52.0); HEMOGLOBIN. 10.7 g/dL (14.0-18.0); MEAN CORPUSCULAR HEMOGLOBIN 28.9 pg (28.0-32.0); MEAN CORPUSCULAR VOLUME 87.5 fL (80.0-94.0); MEAN PLATELET VOLUME 7.2 fl (7.4-10.4); PLATELET 169 x1000/uL (130-400); RED BLOOD CELL COUNT 3.71 mill/uL (4.7-6.1)
[2018-09-11 06:48] LABS: PHOSPHORUS 2.5 mg/dL (2.5-4.9)
[2018-09-11 06:51] LABS: BG BASE EXCESS 8.6 mmol/L (-2.0-2.0); BG CARBOXYHEMOGLOBIN 0.8 % (0.5-1.5); BG DEOXYHEMOGLOBIN 14.2 % (0.0-5.0); BG HCO3 ACT 34.2 mmol/L (22.0-26.0); BG METHEMOGLOBIN 0.3 % (0.0-1.5); BG OXYGEN SATURATION 85.6 % (92.0-98.5); BG OXYHEMOGLOBIN 84.7 % (94.0-97.0); BG PCO2 51.6 mmHg (35.0-45.0); BG PH 7.439 (7.350-7.450); BG PO2 48.8 mmHg (75.0-100.0); BG SAMPLE SITE RIGHT BRACHIAL; BG TOTAL HEMOGLOBIN 11.8 g/dL (12.0-18.0); BG VENT MODE NASAL CANNULA
[2018-09-11 08:00] VITALS: BP 106/56
[2018-09-11] MEDS ORDERED: AMLODIPINE 5MG TABLET PO SCH (09:00)
[2018-09-11] MEDS: GUAIFENESIN 600MG ER TABLET PO SCH ×3 (09:00→20:07)
[2018-09-11] MEDS: LACTULOSE 20G/30ML UDC PO SCH ×2 (09:19→17:42)
[2018-09-11] MEDS: FUROSEMIDE 40MG/4ML VIAL IV SCH (09:19)
[2018-09-11] MEDS: POTASSIUM CHLORIDE 20MEQ/PACKET PO SCH ×2 (09:31→17:42)
[2018-09-11 12:00] VITALS: BP 104/50
[2018-09-11 13:59] LABS: PLATELET ESTIMATE NORMAL
[2018-09-11] MEDS: METRONIDAZOLE 500MG TABLET PO SCH ×2 (15:31→22:11)
[2018-09-11 16:00] VITALS: BP 110/51
[2018-09-11 16:17] LABS: INR 1.2; PARTIAL THROMBOPLASTIN TIME 27.9 sec (23.4-31.0); PROTHROMBIN TIME 12.3 sec (9.1-11.1)
[2018-09-11 20:00] VITALS: BP 122/59
[2018-09-11] MEDS: CEFEPIME 2,000 MG in DEXT 5% WATER 100 ML IV SCH (20:07)
[2018-09-11] MEDS: CARVEDILOL 3.125 MG TABLET PO SCH (20:07)
[2018-09-12] VITALS (7 sets, daily range): BP systolic 103–117; BP diastolic 52–59
[2018-09-12] MEDS: IPRATROPIUM/ALBUTEROL 0.5-3(2.5)MG/3ML NEB HHN SCH ×6 (00:37→21:07)
[2018-09-12] MEDS: METRONIDAZOLE 500MG TABLET PO SCH ×3 (06:03→20:41)
[2018-09-12 07:41] LABS: BASOPHILS % 0.4 % (0.0-2.0); EOSINOPHILS % 3.5 % (0.0-5.0); HEMATOCRIT. 34.6 % (42.0-52.0); HEMOGLOBIN. 11.3 g/dL (14.0-18.0); LYMPHOCYTES % 8.9 % (20.0-50.0); MEAN CORPUSCULAR HEMOGLOBIN 28.5 pg (28.0-32.0); MEAN CORPUSCULAR VOLUME 87.8 fL (80.0-94.0); MEAN PLATELET VOLUME 7.4 fl (7.4-10.4); MONOCYTES % 6.7 % (2.0-8.0); NEUTROPHILS % 80.5 % (40.0-76.0); PLATELET 175 x1000/uL (130-400); RED BLOOD CELL COUNT 3.94 mill/uL (4.7-6.1); RED CELL DISTRIBUTION WIDTH 15.3 % (11.6-14.6)
[2018-09-12] MEDS: CARVEDILOL 3.125 MG TABLET PO SCH ×2 (09:00→20:09)
[2018-09-12] MEDS: POTASSIUM CHLORIDE 20MEQ/PACKET PO SCH ×2 (10:51→16:36)
[2018-09-12] MEDS: LACTULOSE 20G/30ML UDC PO SCH ×2 (10:51→16:37)
[2018-09-12] MEDS: FUROSEMIDE 40MG/4ML VIAL IV SCH (10:51)
[2018-09-12] MEDS: GUAIFENESIN 600MG ER TABLET PO SCH ×2 (10:51→20:41)
[2018-09-12] MEDS ORDERED: POLYMYXIN B SULFATE/TMP 10ML BOTTLE BOTHEYE SCH (16:00)
[2018-09-12] MEDS: CEFEPIME 2,000 MG in DEXT 5% WATER 100 ML IV SCH (20:41)
[2018-09-13 04:00] VITALS: BP 107/55
[2018-09-13] MEDS: METRONIDAZOLE 500MG TABLET PO SCH ×3 (05:17→22:00)
[2018-09-13] MEDS: IPRATROPIUM/ALBUTEROL 0.5-3(2.5)MG/3ML NEB HHN SCH ×4 (07:13→20:56)
[2018-09-13 07:51] VITALS: BP 123/57
[2018-09-13 08:58] LABS: BASOPHILS % 0.4 % (0.0-2.0); EOSINOPHILS % 2.5 % (0.0-5.0); HEMATOCRIT. 35.9 % (42.0-52.0); HEMOGLOBIN. 11.8 g/dL (14.0-18.0); LYMPHOCYTES % 10.4 % (20.0-50.0); MEAN CORPUSCULAR HEMOGLOBIN 28.8 pg (28.0-32.0); MEAN CORPUSCULAR VOLUME 87.8 fL (80.0-94.0); MEAN PLATELET VOLUME 7.3 fl (7.4-10.4); MONOCYTES % 5.6 % (2.0-8.0); NEUTROPHILS % 81.1 % (40.0-76.0); PLATELET 162 x1000/uL (130-400); RED BLOOD CELL COUNT 4.09 mill/uL (4.7-6.1); RED CELL DISTRIBUTION WIDTH 14.9 % (11.6-14.6)
[2018-09-13] MEDS: LACTULOSE 20G/30ML UDC PO SCH ×2 (09:26→17:51)
[2018-09-13] MEDS: CARVEDILOL 3.125 MG TABLET PO SCH ×2 (09:26→20:23)
[2018-09-13] MEDS: GUAIFENESIN 600MG ER TABLET PO SCH ×2 (09:26→20:24)
[2018-09-13] MEDS: POTASSIUM CHLORIDE 20MEQ/PACKET PO SCH ×2 (09:27→17:51)
[2018-09-13] MEDS: FUROSEMIDE 40MG/4ML VIAL IV SCH (09:28)
[2018-09-13 12:00] VITALS: BP 154/58
[2018-09-13 16:00] VITALS: BP 112/58
[2018-09-13] MEDS: CEFEPIME 2,000 MG in DEXT 5% WATER 100 ML IV SCH (20:00)
[2018-09-13 20:31] VITALS: BP 120/62
[2018-09-14 00:39] VITALS: BP 103/53
[2018-09-14] MEDS: IPRATROPIUM/ALBUTEROL 0.5-3(2.5)MG/3ML NEB HHN SCH (03:09)
[2018-09-14 04:00] VITALS: BP 112/53
[2018-09-14] MEDS: METRONIDAZOLE 500MG TABLET PO SCH ×2 (06:00→13:01)
[2018-09-14 08:00] VITALS: BP 117/60
[2018-09-14] MEDS: GUAIFENESIN 600MG ER TABLET PO SCH (09:01)
[2018-09-14] MEDS: POTASSIUM CHLORIDE 20MEQ/PACKET PO SCH ×2 (09:02→17:00)
[2018-09-14] MEDS: CARVEDILOL 3.125 MG TABLET PO SCH (09:02)
[2018-09-14] MEDS: FUROSEMIDE 40MG/4ML VIAL IV SCH (09:02)
[2018-09-14] MEDS: LACTULOSE 20G/30ML UDC PO SCH ×2 (09:02→17:00)
[2018-09-14 15:18] VITALS: BP 125/81
[2018-09-14 16:00] VITALS: BP 116/58
== END 2018-09-14 19:26 | DRG 291 ==
LOC: ER 12:22 → EDBEDREQ 18:30 → 8WST 20:03 → EDBEDREQ 20:06 → EDBEDREQTM 20:06 → EDBEDREQSVC 20:06 → ENRESERV 09-10 10:48 → 6EST 09-13 11:07
PROVIDERS: ADMIT Family Medicine Adult Medicine; ATTEND Family Medicine Adult Medicine
PROC: 0W993ZZ Drainage of Right Pleural Cavity, Percutaneous Approach (ICD-10-PCS; principal; 2018-09-12)
DX: I13.0 Hypertensive heart and chronic kidney disease with heart failure and stage 1 through stage 4 chronic kidney disease, or unspecified chronic kidney disease (principal); N17.0 Acute kidney failure with tubular necrosis; J96.22 Acute and chronic respiratory failure with hypercapnia; J18.9 Pneumonia, unspecified organism; I50.43 Acute on chronic combined systolic (congestive) and diastolic (congestive) heart failure; J96.21 Acute and chronic respiratory failure with hypoxia; I48.1 Persistent atrial fibrillation; E44.1 Mild protein-calorie malnutrition; E87.4 Mixed disorder of acid-base balance; I45.2 Bifascicular block; J90 Pleural effusion, not elsewhere classified; Z68.1 Body mass index [BMI] 19.9 or less, adult; Z51.5 Encounter for palliative care; Z66 Do not resuscitate; E87.6 Hypokalemia; N18.9 Chronic kidney disease, unspecified; I25.5 Ischemic cardiomyopathy; D64.9 Anemia, unspecified; E78.00 Pure hypercholesterolemia, unspecified; E78.5 Hyperlipidemia, unspecified; I27.20 Pulmonary hypertension, unspecified; I48.0 Paroxysmal atrial fibrillation; I50.84 End stage heart failure; J45.909 Unspecified asthma, uncomplicated; I25.10 Atherosclerotic heart disease of native coronary artery without angina pectoris; K21.9 Gastro-esophageal reflux disease without esophagitis; K56.41 Fecal impaction; N28.1 Cyst of kidney, acquired; N40.1 Benign prostatic hyperplasia with lower urinary tract symptoms; Z79.899 Other long term (current) drug therapy; Z86.73 Personal history of transient ischemic attack (TIA), and cerebral infarction without residual deficits; Z90.79 Acquired absence of other genital organ(s)
CPT/HCPCS: 32555; 36415; 36600; 71045; 74176; 76770; 80048; 80061; 80305; 82375; 82550; 82805; 83735; 83880; 84100; 84132; 84134; 84145; 84153; 84439; 84443; 84484; 87077; 87186; 88108; 88312; 92610; 93005; 93970; 94640; 96365; 96366; 96367; 96375; 97162; 97166; 97530; 99284; G0378; J0692; J1940; J3480; J7042; J7050; J7060; J7620; G0103